=== PATIENT | female | born 1995 | race Caucasian/White ===

== ENCOUNTER → 2020-06-10 | Outpatient (CLI) | payer SELFPAY | LOC: YCFC.O 10:45 | PROVIDERS: ATTEND Nurse Practitioner | DX: R07.0 Pain in throat (principal) ==

== ENCOUNTER → 2020-06-21 | Outpatient (CLI) | payer SELFPAY | LOC: YCFC.O 13:50 | PROVIDERS: ATTEND Nurse Practitioner | DX: Z11.1 Encounter for screening for respiratory tuberculosis (principal) ==